=== PATIENT | female | born 1965 | race Caucasian/White ===

== ENCOUNTER 2018-12-16 11:09 | Emergency (ER) | payer BC ==
[2018-12-16 11:15] VITALS: BP 131/87; PULSE 77; RESP 18; TEMP 97.8
[2018-12-16] MEDS ORDERED: LIDOCAINE 1% INJ 10MG/ML (20 ML MDV) SQ ONE (11:26)
--- NOTE | 2018-12-16 11:29 | ED ---
General Adult HPI - General Chief complaint: Wound/Laceration Stated complaint: finger lac Time Seen by Provider: 12/16/18 11:23 Source: patient Mode of arrival: ambulatory Limitations: no limitations - History of Present Illness Initial comments: Patient presents with a chief complaint of a laceration to the left lateral index finger. She says this happened 25 minutes ago when she was trying to cut a box with a [employer] army knife. She states that it initially bled quite a bit however it is now controlled. Pain is minimal. She denies any other injuries. She denies taking any blood thinners. Patient has a history of diabetes and is ALLERGIC to sulfa drugs. - Related Data Home Medications Medication Instructions Recorded Confirmed Fluticasone Propionate 2 spray EA NOSTRIL DAILY 12/16/18 12/16/18 Loratadine [Claritin] 10 mg PO DAILY 12/16/18 12/16/18 Multivitamins, Thera [Multivitamin 1 tab PO DAILY 12/16/18 12/16/18 (formulary)] metFORMIN HCL 500 mg PO BID 12/16/18 12/16/18 Allergies Allergy/AdvReac Type Severity Reaction Status Date / Time Sulfa (Sulfonamide Allergy Rash/Hives Verified 12/16/18 11:35 Antibiotics) Review of Systems ROS Statement: Those systems with pertinent positive or pertinent negative responses have been documented in the HPI. ROS Other: All systems not noted in ROS Statement are negative. Past Medical History Past Medical History: Asthma, Diabetes Mellitus History of Any Multi-Drug Resistant Organisms: None Reported Past Surgical History: Hysterectomy Past Psychological History: No Psychological Hx Reported Smoking Status: Never smoker Past Alcohol Use History: Rare Past Drug Use History: None Reported General Exam Limitations: no limitations General appearance: alert, in no apparent distress Head exam: Present: atraumatic, normocephalic Eye exam: Present: normal appearance ENT exam: Present: normal exam Neck exam: Present: normal inspection Respiratory exam: Present: normal lung sounds bilaterally Cardiovascular Exam: Present: regular rate, normal rhythm GI/Abdominal exam: Present: soft. Absent: distended, tenderness Rectal exam: Present: deferred Extremities exam: Present: normal inspection, other (Patient is a 1 cm linear laceration on the left index finger, lateral side, just distal to the MCP joint) Back exam: Present: normal inspection Neurological exam: Present: alert, oriented X3 Psychiatric exam: Present: normal affect, normal mood Skin exam: Present: warm, dry, intact Course Vital Signs 12/16/18 11:10 Temperature 97.8 F Pulse Rate 77 Respiratory 18 Rate Blood Pressure 131/87 O2 Sat by Pulse 99 Oximetry Procedures - Laceration Laceration #1 Consent Obtained: verbal consent Indication: laceration Site: hand Description: linear Depth: simple, single layer Pre-repair: irrigated extensively Type of Sutures: nylon Size of Sutures: 5-0 Technique: simple, interrupted Patient Tolerated Procedure: well Additional Comments: 1 cm laceration, single layer closure, simple interrupted, 3 sutures, 5-0 nylon Medical Decision Making - Medical Decision Making Presents with chief complaint of a laceration. Initial vital signs are stable, patient is in no acute distress. Bleeding controlled. Laceration repaired per the procedure note. After digital block, patient irrigated the wound with tap water, extensively, for 5 minutes. Tetanus status updated. X-rays showed no evidence of retained foreign bodies or fractures. Patient instructed if the sutures removed in 7 days, she was given Signs and symptoms that are worrisome for infection should probably return to the emergency department. At this time, patient stable for discharge. Disposition Clinical Impression: Laceration Disposition: HOME SELF-CARE Condition: Good Instructions (If sedation given, give patient instructions): Care For Your Stitches (ED) Is patient prescribed a controlled substance at d/c from ED?: No Referrals: Mata Camilo MD [Primary Care Provider] - 1-2 days
[2018-12-16] MEDS ORDERED: DIPH,PERTUS(ACELL)TETVAC-LF 0.5 ML VIAL IM ONE (11:30)
--- NOTE | 2018-12-16 11:58 | XR ---
Limited right hand HISTORY: Laceration 2 views of the right hand Is no radiographic foreign body. Bone mineralization, joint spaces and alignment are maintained IMPRESSION: No fracture or dislocation.
== END 2018-12-16 12:11 | disposition home or self-care (01) ==
LOC: EDBD → EC 11:09
DX: S61.211A Laceration without foreign body of left index finger without damage to nail, initial encounter (principal); J45.909 Unspecified asthma, uncomplicated; E11.9 Type 2 diabetes mellitus without complications; Z23 Encounter for immunization; Z79.84 Long term (current) use of oral hypoglycemic drugs; Z79.899 Other long term (current) drug therapy; Z88.2 Allergy status to sulfonamides; W26.0XXA Contact with knife, initial encounter; Y92.89 Other specified places as the place of occurrence of the external cause
CPT/HCPCS: 12001; 90471; 90715; 99283